=== PATIENT | female | born 1935 | race Caucasian/White ===

== ENCOUNTER 2018-11-26 22:12 | Inpatient (IN) | payer MEDICAID, OTHER ==
[~2018-11-26] VITALS: Ht 167.6 cm; Wt 73.0 kg
[2018-11-26] MEDS ORDERED: SODIUM CHLORIDE 0.9% 1,000 ML IV ONE (23:29)
[2018-11-27 00:06] LABS: BASOPHILS % 0.4 % (0.0-2.0); EOSINOPHILS % 0.7 % (0.0-5.0); HEMATOCRIT. 39.8 % (36.0-48.0); LYMPHOCYTES % 17.4 % (20.0-50.0); MEAN CORPUSCULAR VOLUME 88.6 fL (81.0-99.0); MEAN PLATELET VOLUME 8.7 fl (7.4-10.4); MONOCYTES % 4.4 % (2.0-8.0); NEUTROPHILS % 77.1 % (40.0-76.0); PLATELET 235 x1000/uL (130-400); RED BLOOD CELL COUNT 4.49 mill/uL (4.2-5.4); RED CELL DISTRIBUTION WIDTH 13.5 % (11.6-14.6)
[2018-11-27 00:11] LABS: PROTHROMBIN TIME 10.3 sec (9.1-11.1)
[2018-11-27 00:16] LABS: CHLORIDE 105 mEq/L (98-107)
[2018-11-27 01:44] LABS: CLARITY URINE TURBID (CLEAR); COLOR URINE YELLOW (YELLOW); KETONES URINE NEGATIVE (NEGATIVE); LEUKOCYTE ESTERASE URINE 3+ (NEGATIVE); NITRITE URINE POSITIVE (NEGATIVE); OCCULT BLOOD URINE 1+ (NEGATIVE); PH URINE 5.5 (4.5-8.0); PROTEIN URINE TRACE (NEGATIVE); SPECIFIC GRAVITY URINE 1.025 (1.005-1.030)
[2018-11-27] MEDS: SODIUM CHLORIDE 0.9% 1,000 ML IV SCH (07:42)
[2018-11-27] MEDS ORDERED: CLONIDINE 0.1MG TABLET PO PRN (07:45)
[2018-11-27] MEDS ORDERED: ONDANSETRON HCL 4MG/2ML INJ IV PRN (07:45)
[2018-11-27] MEDS ORDERED: ACETAMINOPHEN 325MG TABLET PO PRN (07:45)
[2018-11-27] MEDS ORDERED: HYDROCODONE/ACETAMINOPHEN 5/325MG TABLET PO PRN (07:45)
[2018-11-27 09:30] VITALS: BP 124/58
[2018-11-27] MEDS: ENOXAPARIN 40MG/0.4ML SYR SUBCUT SCH (09:30)
[2018-11-27 10:23] VITALS: BP 124/56
[2018-11-27] MEDS ORDERED: LEVOFLOXACIN 500MG PREMIX 100 ML IV NR (10:30)
[2018-11-27] MEDS ORDERED: BLOOD SUGAR DIAGNOSTIC STRIP TEST SCH (11:45)
[2018-11-27] MEDS ORDERED: DEXTROSE 50% WATER 50ML SYRINGE IV PRN (11:45)
[2018-11-27 12:00] VITALS: BP 105/38
[2018-11-27] MEDS: BLOOD SUGAR DIAGNOSTIC STRIP TEST SCH ×3 (12:28→20:54)
[2018-11-27] MEDS: INSULIN LISPRO 100 UNITS/ML SUBCUT SCH ×3 (13:00→20:54)
[2018-11-27 14:51] LABS: CREATINE KINASE 140 IU/L (26-192)
[2018-11-27 14:52] LABS: CREATINE KINASE MB FRACTION 1.4 ng/mL (0.5-3.6)
[2018-11-27 16:00] VITALS: BP 114/57
[2018-11-27 20:00] VITALS: BP 150/57
[2018-11-27] MEDS: DOCUSATE SODIUM 100MG CAPSULE PO PRN (20:59)
[2018-11-27 23:45] LABS: CREATINE KINASE 145 IU/L (26-192)
[2018-11-27 23:46] LABS: CREATINE KINASE MB FRACTION 1.3 ng/mL (0.5-3.6)
[2018-11-28] VITALS (7 sets, daily range): BP systolic 115–167; BP diastolic 57–91
[2018-11-28] MEDS: SODIUM CHLORIDE 0.9% 1,000 ML IV SCH ×2 (03:59→17:02)
[2018-11-28] MEDS: BLOOD SUGAR DIAGNOSTIC STRIP TEST SCH ×4 (06:27→21:00)
[2018-11-28] MEDS: INSULIN LISPRO 100 UNITS/ML SUBCUT SCH ×4 (06:27→21:00)
[2018-11-28] MEDS ORDERED: LEVOFLOXACIN 250MG PREMIX 50 ML IV SCH (09:00)
[2018-11-28] MEDS: ENOXAPARIN 40MG/0.4ML SYR SUBCUT SCH (09:15)
[2018-11-28] MEDS: DOCUSATE SODIUM 100MG CAPSULE PO PRN (09:15)
[2018-11-28 12:47] LABS: BASOPHILS % 0.5 % (0.0-2.0); EOSINOPHILS % 1.8 % (0.0-5.0); HEMATOCRIT. 33.5 % (36.0-48.0); HEMOGLOBIN. 10.9 g/dL (12.0-16.0); MEAN CORPUSCULAR HEMOGLOBIN 28.4 pg (28.0-32.0); MEAN CORPUSCULAR VOLUME 86.8 fL (81.0-99.0); MEAN PLATELET VOLUME 8.4 fl (7.4-10.4); MONOCYTES % 8.6 % (2.0-8.0); NEUTROPHILS % 60.1 % (40.0-76.0); PLATELET 204 x1000/uL (130-400); RED BLOOD CELL COUNT 3.85 mill/uL (4.2-5.4); RED CELL DISTRIBUTION WIDTH 13.2 % (11.6-14.6)
[2018-11-28 12:49] LABS: CHLORIDE 106 mEq/L (98-107)
[2018-11-28 12:58] LABS: LDL CHOLESTEROL 106 mg/dL (5-100)
[2018-11-28 13:00] LABS: HDL CHOLESTEROL 45 mg/dL (40-59)
[2018-11-28] MEDS ORDERED: NITR-87 MT (15:59)
== END 2018-11-28 21:46 | disposition home or self-care (01) | DRG 48 ==
LOC: ER 22:12 → 5WST 11-27 01:32 → EDBEDREQ 11-27 01:45 → ENRESERV 11-27 07:07 → SUPCPDRO 11-27 07:42
PROVIDERS: ADMIT Hospitalist; ATTEND Hospitalist
DX: G90.8 Other disorders of autonomic nervous system (principal); E11.65 Type 2 diabetes mellitus with hyperglycemia; I11.9 Hypertensive heart disease without heart failure; N39.0 Urinary tract infection, site not specified; I25.10 Atherosclerotic heart disease of native coronary artery without angina pectoris; Z86.73 Personal history of transient ischemic attack (TIA), and cerebral infarction without residual deficits
CPT/HCPCS: 36415; 71045; 80061; 82550; 82553; 82962; 83036; 84443; 84484; 93005; 93306; 93970; 96360; 96361; 97162; 99285; J1650; J1815; J1956; J7030